=== PATIENT | male | born 1985 | race Caucasian/White ===

== ENCOUNTER 2020-07-16 16:49 | Inpatient (IN) | payer OTHER ==
[~2020-07-16] VITALS: Ht 175.3 cm; Wt 72.6 kg
--- NOTE | 2020-07-16 17:00 | NUR ---
ZULMA AND TO ER BED 14. IN CUSTODY. UNABLE TO GET ANY INFORMATION. NOT IN RESP DISTRESS. BROUGHT IN FOR AGITATED BIZAARE BEHAVIOR. PT HAD TO BE GIVEN VERSED 10MG IM. PT IS SUSPECTED OF INGESTING UNKNOWN SUBSATNCE. PT IS CURRENTLY SEDATED BY ARROUSABLE WITH TACTILE STIMULI. WAS AT THE BEDSIDE FOR EVAL. ORDERS RECEIVED, NOTED ADN CARRIED OUT. URINE COLLECTED VIA IN AND OUT CATH WITH STRICT STERILE TECHNIQUE. PT ON MONITOR WITH AT BEDSIDE. PT IS ON CUFFS
[2020-07-16] MEDS ORDERED: OLANZAPINE 10 MG VIAL IM ONE ×2 (17:29→17:30)
[2020-07-16 18:44] LABS: BASOPHILS # (AUTO) 0.1 /CMM (0.0-0.2); BASOPHILS % (AUTO) 0.3 % (0.0-2.0); HEMATOCRIT 42 % (39-51); HEMOGLOBIN 14.2 g/dL (13.5-17.5); LYMPHOCYTES # (AUTO) 2.2 /CMM (0.8-4.8); LYMPHOCYTES % (AUTO) 11.4 % (20.0-44.0); MEAN CORPUSCULAR HGB CONC 34 g/dl (31.0-36.0); MEAN CORPUSCULAR VOLUME 85 fL (80-96); MONOCYTES # (AUTO) 1.9 /CMM (0.1-1.30); MONOCYTES % (AUTO) 9.7 % (2.0-12.0); NEUTROPHILS # (AUTO) 15.2 /CMM (1.8-8.9); NEUTROPHILS % (AUTO) 78.6 % (43.0-81.0); PLATELET COUNT (AUTO) 241 /CMM (150-450); RED BLOOD CELL COUNT(AUTO) 4.93 MIL/uL (4.5-6.0); WHITE BLOOD COUNT (AUTO) 19.4 K/uL (4.3-11.0)
--- NOTE | 2020-07-16 19:03 | NUR ---
FOLLOWED UP WITH LAB REGARDING URINE AND BLOOD RESULT
[2020-07-16 19:07] LABS: CALCIUM, SERUM 9.1 mg/dL (8.5-10.1); CARBON DIOXIDE 26 mmol/L (21-32); CHLORIDE 100 mmol/L (98-107); CREATININE 1.1 mg/dL (0.6-1.3); GLUCOSE 79 mg/dL (74-106); POTASSIUM 3.9 mmol/L (3.5-5.1); SODIUM SERUM 139 mmol/L (136-145); UREA NITROGEN, BLOOD 15 mg/dL (7-18)
[2020-07-16 19:13] LABS: ALANINE AMINOTRANSFERASE 114 U/L (12-78); ALBUMIN 4.2 g/dL (3.4-5.0); ALCOHOL, BLOOD < 3 mg/dL (0-0); ALKALINE PHOSPHATASE 63 U/L (46-116); ASPARTATE AMINOTRANSFERASE 87 U/L (15-37); BILIRUBIN,DIRECT 0.4 mg/dL (0.0-0.2); BILIRUBIN,TOTAL 1.7 mg/dL (0.2-1.0); TOTAL PROTEIN, SERUM 7.9 g/dL (6.4-8.2)
[2020-07-16 19:15] LABS: ACETAMINOPHEN < 0 ug/ml (10-30)
[2020-07-16 19:18] LABS: BILIRUBIN,URINE SMALL (NEGATIVE); COLOR,URINE YELLOW (YELLOW); PROTEIN,URINE 1+ mg/dl (NEGATIVE); UGLUCOSE NEGATIVE (NEGATIVE)
[2020-07-16 19:19] LABS: LEUKOCYTE ESTERASE ,URINE NEGATIVE (NEGATIVE); NITRITE, URINE NEGATIVE (NEGATIVE); UROBILINOGEN,URINE 0.2 EU/dL (0.2)
[2020-07-16] MEDS ORDERED: IV NS 0.9% 500 ML BAG IV ONE (19:30)
[2020-07-16 19:33] LABS: BACTERIA,URINE Few /HPF (None Seen); RBC,URINE 51-80 /HPF (0-2); SQUAMOUS EPITHELIAL CELL,UR Few /HPF (None Seen); WBC,URINE 0-2 /HPF (0-3)
[2020-07-16] MEDS ORDERED: LORAZEPAM INJ 2 MG/ML VIAL ONE ×2 (19:52→23:59)
[2020-07-16] MEDS ORDERED: LORAZEPAM INJ 2 MG/ML VIAL IV ONE (20:00)
[2020-07-16] MEDS ORDERED: IV NS 0.9% 1,000 ML BAG IV ONE (20:00)
[2020-07-16] MEDS ORDERED: HALOPERIDOL LACTATE INJ 5 MG/ML VIAL ONE (21:00)
[2020-07-16] MEDS ORDERED: diphenhydrAMINE HCL 50 MG/ML VIAL IV ONE (21:00)
[2020-07-16] MEDS ORDERED: HALOPERIDOL LACTATE INJ 5 MG/ML VIAL IM ONE (21:00)
[2020-07-16] MEDS ORDERED: diphenhydrAMINE HCL 50 MG/ML VIAL ONE (21:00)
--- NOTE | 2020-07-16 22:00 | NUR ---
LAB CALLED REGARDING NEGATIVE COVID RESULT.
[2020-07-16] MEDS ORDERED: ACETAMINOPHEN 325 MG TABLET PO PRN (22:30)
[2020-07-16] MEDS ORDERED: MAG HYDROX/AL HYDROX/SIMETH 30 ML UDC PO PRN (22:30)
[2020-07-16] MEDS ORDERED: MAGNESIUM HYDROXIDE 30 ML UDC PO PRN (22:30)
[2020-07-16] MEDS ORDERED: ZOLPIDEM TARTRATE 5 MG TABLET PO PRN (22:30)
[2020-07-16] MEDS ORDERED: ONDANSETRON HCL/PF 4 MG/2 ML VIAL IVP PRN (22:30)
[2020-07-16] MEDS ORDERED: HYDROCODONE/APAP 5/325MG TABLET PO PRN (22:30)
[2020-07-16] MEDS ORDERED: Z GUARD REMEDY 2 OZ OINT TP PRN (22:30)
[2020-07-17] MEDS: IV 1/2NS 1000 ML 1,000 ML IV PRN ×4 (00:06→18:29)
[2020-07-17] MEDS: LORAZEPAM INJ 2 MG/ML VIAL IV PRN ×3 (00:07→17:29)
--- NOTE | 2020-07-17 00:57 | NUR ---
pt moved to er bed 6 for closer observation. accounting generalist at bedside.
[2020-07-17] MEDS ORDERED: LORAZEPAM INJ 2 MG/ML VIAL ONE ×2 (03:20→07:39)
[2020-07-17 04:36] LABS: BASOPHILS # (AUTO) 0.1 /CMM (0.0-0.2); BASOPHILS % (AUTO) 0.6 % (0.0-2.0); EOSINOPHILS % (AUTO) 0.1 % (0.0-6.0); HEMATOCRIT 41 % (39-51); LYMPHOCYTES # (AUTO) 1.7 /CMM (0.8-4.8); LYMPHOCYTES % (AUTO) 16.5 % (20.0-44.0); MEAN CORPUSCULAR HGB CONC 35 g/dl (31.0-36.0); MEAN CORPUSCULAR VOLUME 84 fL (80-96); MONOCYTES # (AUTO) 0.8 /CMM (0.1-1.30); MONOCYTES % (AUTO) 7.4 % (2.0-12.0); NEUTROPHILS # (AUTO) 7.9 /CMM (1.8-8.9); NEUTROPHILS % (AUTO) 75.4 % (43.0-81.0); PLATELET COUNT (AUTO) 205 /CMM (150-450); RED BLOOD CELL COUNT(AUTO) 4.82 MIL/uL (4.5-6.0); WHITE BLOOD COUNT (AUTO) 10.4 K/uL (4.3-11.0)
[2020-07-17 05:03] LABS: ALBUMIN 3.4 g/dL (3.4-5.0); BILIRUBIN,DIRECT 0.5 mg/dL (0.0-0.2); BILIRUBIN,TOTAL 2.1 mg/dL (0.2-1.0); CALCIUM, SERUM 8.2 mg/dL (8.5-10.1); CREATININE 0.9 mg/dL (0.6-1.3); MAGNESIUM 1.9 mg/dL (1.8-2.4); PHOSPHORUS 2.8 mg/dL (2.5-4.9); POTASSIUM 3.8 mmol/L (3.5-5.1); TOTAL PROTEIN, SERUM 6.7 g/dL (6.4-8.2)
[2020-07-17 05:15] LABS: THYROID STIMULATING HORMONE 0.44 uIU/mL (0.358-3.74)
--- NOTE | 2020-07-17 06:18 | NUR ---
TELE 753-3
--- NOTE | 2020-07-17 07:20 | NUR ---
ASSESSED PT ON BED ASLEEP EASILY AROSUABLE, NOT IN RESPIRATORY DISTRESS, V/ STABLE, KEPT RESTED AND COMFORTABLE. WILL CONTINUE TO MONITOR.
[2020-07-17] MEDS: PANTOPRAZOLE 40 MG TABLET.DR PO SCH (07:30)
--- NOTE | 2020-07-17 07:30 | NUR ---
CALLED [facility] FOR REPORT. RN NOT AVAILABLE. WILL CALL BACK LATER.
--- NOTE | 2020-07-17 07:52 | NUR ---
REPORT GIVEN TO KENZIE [place] FOR DAVID.
[2020-07-17 08:00] VITALS: BP 121/63
[2020-07-17 08:25] VITALS: BP 140/93
--- NOTE | 2020-07-17 08:25 | NUR ---
RN NOTES PATIENT ARRIVED AT UNIT IN ROOM 322-1 ACCOMPANIED BY 3 OR NURSES AND ESCORTED BY 2 BODY SHOP TECHNICIAN OFFICERS.
--- NOTE | 2020-07-17 11:40 | NUR ---
MEDICAL HEALTH RESEARCHER ADMITTING NOTES PATIENT ARRIVED AT UNIT ROOM 322-1 VIA GURNEY, ACCOMPANIED BY 3 ER NURSES AND ESCORTED BY 2 WAN SUPPORT SPECIALIST OFFICERS. PATIENT IS RESTING IN BED W/ EYES CLOSED, GIVEN ATIVAN IV IN THE ER PER ER NURSE ANGÉLICA. PATIENT CURRENTLY W/ HANDCUFFS. BREATHING EVEN AND UNLABORED, ON O2 AT 3LPM VIA NC, NO RESPIRATORY DISTRESS. IV LINE ON RIGHT HAND #20 INTACT AND PATENT, IVF OF 1/2 NS AT 150CC/HR, INFUSING WELL. CONDOM CATH IN PLACE, DRAINING URINE OF YELLOW COLOR, CURRENT OUTPUT OF 250CC. SAFETY PRECAUTIONS IN PLACE. WILL CONTINUE TO MONITOR.
--- NOTE | 2020-07-17 14:09 | NUR ---
RN NOTES PATIENT ABLE TO VOID USING URINAL X2; CONDOM CATHETER REMOVED AT THIS TIME.
[2020-07-17 16:00] VITALS: BP 118/55
--- NOTE | 2020-07-17 19:04 | NUR ---
RN NOTES PATIENT IN BED RESTING, EYES CLOSED. A/O X2-3, ABLE TO MAKE NEEDS KNOWN. BREATHING EVEN AND UNLABORED, TOLERATING ROOM AIR, NO SOB NOR RESPIRATORY DISTRESS. IV LINE ON RIGHT HAND #20 INTACT AND PATENT, IVF OF 1/2 NS INFUSING AT 150ML/HR. PATIENT COMPLAINT OF UNABLE TO USE THE URINAL HE GETS WET, OK TO REPLACE THE CONDOM CATH AGAIN AT THIS TIME. SAFETY PRECS MAINTAINED. CINDER PIT CRANE OPERATOR STILL AT BEDSIDE. PATIENT CURRENTLY HANDCUFFED, NO SKIN CHANGES NOTED. WILL ENDORSE TO ENDOSCOPY NURSE RN FOR DAVID.
--- NOTE | 2020-07-17 20:00 | NUR ---
RN NOTES RECEIVED PT. SLEEPING BUT AROUSABLE, ON POLICE CUSTODY, NOT IN DISTRESS, ON CONDOM CATH, NO PAIN NOTED, CALL LIGHT WITHIN REACH, [id number], CONTINUE TO MONITOR
[2020-07-17 20:09] VITALS: BP 144/60
[2020-07-18] MEDS: IV 1/2NS 1000 ML 1,000 ML IV PRN ×3 (01:27→23:19)
--- NOTE | 2020-07-18 07:00 | NUR ---
RN NOTES SLEEPING BUT AROUSABLE, STILL UNDER CUSTODY, NOT IN DISTRESS, CALL LIGHT WITHIN REACH, [id number], PT. NEEDS ATTENDED
[2020-07-18] MEDS: PANTOPRAZOLE 40 MG TABLET.DR PO SCH (07:30)
--- NOTE | 2020-07-18 07:31 | NUR ---
RN NOTES PATIENT IN BED RESTING, EYES CLOSED. A/O X2-3, ABLE TO MAKE NEEDS KNOWN. BREATHING EVEN AND UNLABORED, TOLERATING ROOM AIR, NO SOB NOTED. IV LINE ON RIGHT HAND #20 INTACT AND PATENT, IVF OF 1/2 NS INFUSING AT 150ML/HR. CONDOM CATH IN PLACE. SAFETY PRECS IN PLACE. TIN FLOPPER AT BEDSIDE. PATIENT CURRENTLY HANDCUFFED, NO SKIN CHANGES NOTED. WILL CONTINUE TO MONITOR.
[2020-07-18 07:52] LABS: BASOPHILS # (AUTO) 0.1 /CMM (0.0-0.2); BASOPHILS % (AUTO) 0.4 % (0.0-2.0); EOSINOPHILS % (AUTO) 0.7 % (0.0-6.0); HEMATOCRIT 39 % (39-51); HEMOGLOBIN 13.3 g/dL (13.5-17.5); LYMPHOCYTES # (AUTO) 2.5 /CMM (0.8-4.8); LYMPHOCYTES % (AUTO) 20.3 % (20.0-44.0); MEAN CORPUSCULAR HGB CONC 34 g/dl (31.0-36.0); MEAN CORPUSCULAR VOLUME 84 fL (80-96); MONOCYTES # (AUTO) 0.8 /CMM (0.1-1.30); MONOCYTES % (AUTO) 6.4 % (2.0-12.0); NEUTROPHILS # (AUTO) 8.9 /CMM (1.8-8.9); NEUTROPHILS % (AUTO) 72.2 % (43.0-81.0); PLATELET COUNT (AUTO) 210 /CMM (150-450); RED BLOOD CELL COUNT(AUTO) 4.65 MIL/uL (4.5-6.0); WHITE BLOOD COUNT (AUTO) 12.4 K/uL (4.3-11.0)
[2020-07-18 08:00] VITALS: BP 138/75
[2020-07-18 08:23] LABS: CALCIUM, SERUM 7.9 mg/dL (8.5-10.1); CREATININE 0.7 mg/dL (0.6-1.3); MAGNESIUM 1.8 mg/dL (1.8-2.4); PHOSPHORUS 2.1 mg/dL (2.5-4.9); POTASSIUM 3.5 mmol/L (3.5-5.1)
[2020-07-18] MEDS ORDERED: K PHOS NEUTRAL 250 MG TABLET PO ONE (14:00)
[2020-07-18 16:00] VITALS: BP 115/62
--- NOTE | 2020-07-18 19:11 | NUR ---
RN NOTES PATIENT IN BED RESTING, ABLE TO BE AWAKENED. A/O X2-3, ABLE TO MAKE NEEDS KNOWN. BREATHING EVEN AND UNLABORED, TOLERATING ROOM AIR, NO SOB NOR RESPIRATORY DISTRESS. IV LINE ON RIGHT HAND #20 INTACT AND PATENT, IVF OF 1/2 NS INFUSING AT 250ML/HR. PATIENT ABLE TO USE URINAL AND ASKED TO REMOVE CONDOM CATH. SAFETY PRECS MAINTAINED. ENVELOPE SEALER AT BEDSIDE. PATIENT CURRENTLY HANDCUFFED, NO SKIN CHANGES NOTED. WILL ENDORSE TO DENTURE TECHNICIAN RN FOR DAVID.
--- NOTE | 2020-07-18 19:30 | NUR ---
MS RN OPENING NOTES: PATIENT IN BED RESTING COMFORTABLY, A/O X2-3, DIVEHI/LUXEMBOURGISH SPEAKING. ABLE TO VERBALIZE NEEDS. BREATHING EVEN AND UNLABORED, TOLERATING ROOM AIR, NO SOB NOR RESPIRATORY DISTRESS. IV LINE ON RIGHT HAND #20 INTACT AND PATENT, IVF OF 1/2 NS INFUSING AT 250ML/HR. PATIENT ABLE TO USE URINAL. SAFETY PRECAUTIONS IN PLACE. RRT AT BEDSIDE. PT CURRENTLY HANDCUFFED, NO SKIN CHANGES NOTED. WILL CONTINUE TO MONITOR.
[2020-07-18 20:00] VITALS: BP 127/60
[2020-07-19] MEDS: IV 1/2NS 1000 ML 1,000 ML IV PRN ×2 (05:36→11:00)
--- NOTE | 2020-07-19 06:50 | NUR ---
MS RN CLOSING NOTES: PATIENT IN BED RESTING COMFORTABLY, A/O X2-3, ROMANSH/MOHAWK SPEAKING. ABLE TO VERBALIZE NEEDS. BREATHING EVEN AND UNLABORED, TOLERATING ROOM AIR, NO SOB NOR RESPIRATORY DISTRESS. IV LINE ON RIGHT HAND #20 INTACT AND PATENT, IVF OF 1/2 NS INFUSING AT 250ML/HR. PATIENT ABLE TO USE URINAL. SAFETY PRECAUTIONS IN PLACE. DIGITAL AD TRAFFICKER AT BEDSIDE. PT CURRENTLY HANDCUFFED, NO SKIN CHANGES NOTED. WILL ENDORSE TO DAY SHIFT NURSE FOR CONTINUITY OF CARE.
--- NOTE | 2020-07-19 07:00 | NUR ---
MS-RN NOTES: PATIENT REFUSED AM LABS. WILL TRY TO OFFER AT A LATER TIME.
--- NOTE | 2020-07-19 07:47 | NUR ---
MS/RN OPENING NOTE RECEIVED FROM ICU MANAGER NURSE PATIENT A/O X3 AWAKE IN BED. DENIES OF ANY PAIN AT THIS MOMENT. PATIENT ON ROOM AIR TOLERATING WELL. SAFETY MEASURES IN PLACE, BED LOCKED AND IN LOWEST POSITION, CALL LIGHT WITHIN REACH. MUSIC PRODUCER POLICE AT BESIDE, PATIENT HANDCUFFED TO HOSPITAL BED. WILL CONTINUE TO MONITOR AND ENSURE SAFETY.
[2020-07-19 08:00] VITALS: BP 136/78
[2020-07-19] MEDS: PANTOPRAZOLE 40 MG TABLET.DR PO SCH (08:29)
[2020-07-19 11:07] LABS: CALCIUM, SERUM 8.2 mg/dL (8.5-10.1); CREATININE 0.7 mg/dL (0.6-1.3); MAGNESIUM 1.9 mg/dL (1.8-2.4); PHOSPHORUS 2.6 mg/dL (2.5-4.9); POTASSIUM 3.5 mmol/L (3.5-5.1)
[2020-07-19 11:11] LABS: ALBUMIN 2.6 g/dL (3.4-5.0); BILIRUBIN,DIRECT 0.1 mg/dL (0.0-0.2); BILIRUBIN,TOTAL 0.5 mg/dL (0.2-1.0); TOTAL PROTEIN, SERUM 6.3 g/dL (6.4-8.2)
[2020-07-19 11:12] LABS: BASOPHILS % (AUTO) 0.5 % (0.0-2.0); EOSINOPHILS % (AUTO) 3.4 % (0.0-6.0); HEMATOCRIT 38 % (39-51); LYMPHOCYTES # (AUTO) 1.6 /CMM (0.8-4.8); LYMPHOCYTES % (AUTO) 21.3 % (20.0-44.0); MEAN CORPUSCULAR HGB CONC 35 g/dl (31.0-36.0); MEAN CORPUSCULAR VOLUME 84 fL (80-96); MONOCYTES # (AUTO) 0.5 /CMM (0.1-1.30); MONOCYTES % (AUTO) 7.3 % (2.0-12.0); NEUTROPHILS % (AUTO) 67.5 % (43.0-81.0); PLATELET COUNT (AUTO) 226 /CMM (150-450); WHITE BLOOD COUNT (AUTO) 7.5 K/uL (4.3-11.0)
--- NOTE | 2020-07-19 15:05 | NUR ---
MS/NATURAL RESOURCES TECHNICIAN PATIENT DISCHARGED TO LONG TERM IN STABLE CONDITION, ECORTED TO LOBBY BY 2 POLICE OFFICERS. ALL PERSONAL BELONGINGS RETURNED TO PATIENT AND SIGNED OFF IN BELONGINGS LIST. HEPLOCK REMOVED, APPLIED PRESSURE DRESSING. NAME BAND REMOVED. EDUCATED PATIENT ON DISCHARGE INSTRUCTIONS. PATIENT WAS UNABLE TO SIGN EXIT CARE PER SLOT MANAGER. NURSE AND CHARGE NURSE SIGNED OFF ON EXIT CARE. COPY PROVIDED TO PATIENT/OFFICERS.
== END 2020-07-19 15:10 | DRG 557 ==
LOC: ER 16:55 → TRANSITION 22:18 → TELE 07-17 06:29 → MED 07-17 13:57
PROVIDERS: ADMIT Student in an Organized Health Care Education/Training Program; ATTEND Nurse Practitioner Acute Care
DX: M62.82 Rhabdomyolysis (principal); G92 Toxic encephalopathy; F15.10 Other stimulant abuse, uncomplicated; R74.01 Elevation of levels of liver transaminase levels; D72.828 Other elevated white blood cell count; Z20.822 Contact with and (suspected) exposure to COVID-19; Z91.81 History of falling
CPT/HCPCS: 36415; 71045-TC; 80048-TC; 80061-TC; 80076-TC; 81001; 82550-TC; 82553; 82565-TC; 83735-TC; 84100-TC; 84443-TC; 85025-TC; 87081-TC; A4349; C9803; G0378; G0480; J1200; J1630; J2060; J2405; J3490; J7030

== ENCOUNTER 2024-11-09 03:57 | Emergency (ER) | payer OTHER ==
[~2024-11-09] VITALS: Ht 162.6 cm; Wt 59.0 kg
[2024-11-09 04:01] VITALS: BP 134/94; TEMP 98.7; O2SAT 98
[2024-11-09] MEDS ORDERED: FINA1TAB11 PO (04:09)
== END 2024-11-09 04:20 ==
LOC: ER 04:01
DX: N40.0 Benign prostatic hyperplasia without lower urinary tract symptoms (principal); F17.200 Nicotine dependence, unspecified, uncomplicated